=== PATIENT | male | born 1985 ===

== ENCOUNTER 2017-06-17 08:10 | Day surgery (SDC) | payer BC ==
[2017-06-12 10:15] VITALS: BMI 35.5
[2017-06-17] MEDS ORDERED: Bupivacaine 0.5% Inj(30mL) IJ ONE (08:33)
[2017-06-17] MEDS ORDERED: Lidocaine 1% Inj (20ml) IJ ONE (08:33)
[2017-06-17] MEDS ORDERED: ceFAZolin 1 GM in Sodium Chloride 0.9% 100 ML IVPB ONE (08:33)
[2017-06-17] MEDS ORDERED: Sodium Chloride 0.9% 1,000 ML IV SCH (08:45)
--- NOTE | 2017-06-17 08:47 | CP.PCM.PN ---
Subjective - Date & Time of Evaluation Date of Evaluation: 06/17/17 Time of Evaluation: 08:44 - Subjective Subjective: 31 year old male seen preoperatively in [facility] for left ankle arthroscopy and lateral ankle stabilization with Dr. Daniels today. Patient is AAO x 3 and NAD resting comfortably in bed at time of visit. States that he only has pain in ankle when walking or running. States that he has been NPO since 11:30 last night. Denies any past surgeries besides dental procedures. Denies any further pedal complaints at this time. Denies tobacco use, is a social drinker and denies illicit drug use. Denies any recent N/V/F/C/CP/SOB/D/Posterior calf pain when squeezed Objective - Medications Medications: Current Medications Cefazolin Sodium 1 gm/ Sodium (Chloride) 100 mls @ 100 mls/hr IVPB ONCE ONE PRN Reason: Protocol Stop: 06/17/17 09:32 Sodium Chloride (Sodium Chloride 0.9%) 1,000 mls @ 0 mls/hr IV .Q0M SALAZAR PRN Reason: As Directed Stop: 06/18/17 08:33 - Constitutional Appears: Well, Non-toxic, No Acute Distress - Extremities Exam Additional comments: LE focused exam: Vasc: DP/PT pulses palpable 2/4 b/l. Skin temperature warm to warm from proximal to distal. CFT < 3 seconds to all digits b/l. No edema noted b/l Neuro: Epicritic and protective sensation grossly intact b/l Derm: No open lesions, wounds, maceration, xerosis, abnormal pigmentation or abnormal growths noted b/l. Nails well manicured and normotrophic 1-10 b/l MSK: Minimal POP to left ankle joint with passive ROM. No POP to left ankle joint. No other gross deformities noted - Neurological Exam Neurological Exam: Alert, Awake, Oriented x3 - Psychiatric Exam Psychiatric exam: Normal Affect, Normal Mood Assessment and Plan - Assessment and Plan (Free Text) Assessment: 31 year old male seen preoperatively in [facility] for left ankle arthroscopy and lateral ankle stabilization with Dr. Daniels today Plan: Pt was seen and examined in [facility] Pt NPO status was confirmed All pre-op testing and clearance in chart Pt has exhausted all conservative treatment at this time and is opting for surgical intervention Pt was explained procedure and post-operative course All pt's questions were answered to satisfaction No guarantees were made Pt understands all risks, benefits and complications of procedure Pt will follow-up with Dr. Daniels within 1 week of surgery
--- NOTE | 2017-06-17 08:50 | CP.SDSHP ---
Same Day Surgery H & P - History Proposed Procedure: Left ankle arthroscopy and debridement with lateral ankle stabilization repair - Previous Medical/Surgical History Pain: 4.Moderate Pain - Allergies Allergies: Allergies cats Allergy (Uncoded 06/17/17 08:22) ITCHING sneezing - Current Medications Current Medications: Denies - Physical Exam General Appearance: Good Mental Status: Alert & Oriented x3 - {Optional Preform as Required} Integument: WNL Ortho: Other (Pain with ROM left ankle) - Impression Pt. Evaluated Today:Candidate for Anesthesia & Procedure: Yes - Date & Time Date: 06/17/17 Time: 08:50 Short Stay Discharge - Short Stay Discharge Admitting Diagnosis/Reason for Visit: M65.872,S93.492S,M25.272 Disposition: HOME/ ROUTINE Referrals: Mo Bass MD [Primary Care Provider] - Follow-up: Dr. Daniels Instructions: RICE Therapy (GEN)
[2017-06-17 08:51] VITALS: RESP 20
[2017-06-17] MEDS ORDERED: Bupivacaine 0.5% Inj(30mL) ONE (10:39)
[2017-06-17] MEDS ORDERED: Propofol 10 mg/ml Inj (20 ML) ONE ×2 (10:44→13:35)
[2017-06-17] MEDS ORDERED: Rocuronium 10 mg/ml (5 ml) ONE (10:45)
[2017-06-17] MEDS ORDERED: Midazolam 2 MG/2 ML VIAL ONE (10:45)
[2017-06-17] MEDS ORDERED: ePHEDrine 50 mg/ml Inj ONE (10:45)
[2017-06-17] MEDS ORDERED: Phenylephrine 10 mg/ml Inj ONE (10:45)
[2017-06-17] MEDS ORDERED: Succinylcholine 200 mg/10 ml Inj IV ONE (10:45)
[2017-06-17] MEDS ORDERED: Lactated Ringer's 1,000 ML IV ONE ×2 (11:15→14:00)
[2017-06-17] MEDS ORDERED: Lidocaine 1% Inj (20ml) ONE (11:41)
[2017-06-17] MEDS ORDERED: Lidocaine 2% w Epi 1:100,000 Inj IJ ONE (11:45)
[2017-06-17] MEDS ORDERED: Desflurane Inhalation Anesthetic Liq (240 ml) ONE (12:13)
[2017-06-17] MEDS ORDERED: Ropivacaine 0.5% 30ML IV ONE (13:03)
[2017-06-17] MEDS ORDERED: Oxycodone/Acetaminophen 5/325 mg Tab PO PRN ×2 (13:20)
--- NOTE | 2017-06-17 13:20 | PCM.SURG1 ---
Surgeon's Initial Post Op Note - Surgeon's Notes Surgeon: Dr. Daniels Head Girls Golf Coach: Dr. Platt PGY-3, Dr. Izquierdo PGY-2 Type of Anesthesia: General LMA, Local Anesthesia Administered By: Dr. Salgado Pre-Operative Diagnosis: left ankle painful synovitis, lateral ligamentous instability/ rupture Operative Findings: see dictation Post-Operative Diagnosis: same Operation Performed: left ankle arthroscopy, left ankle lateral stabilization Specimen/Specimens Removed: soft tissue Estimated Blood Loss: EBL {In ML}: 2 Blood Products Given: N/A Drains Used: No Drains Post-Op Condition: Good Date of Surgery/Procedure: 06/17/17 Time of Surgery/Procedure: 11:00
--- NOTE | 2017-06-17 13:48 | PCM.ANESB2 ---
Popliteal Nerve Block - Popliteal Nerve Block Date of Procedure: 06/17/17 Procedure Performed: Popliteal Nerve Block Left - Procedure Popliteal Nerve Block: This procedure was explained to the patient that it is for post-operative pain management. Consent was obtained after a thorough discussion with the patient regarding the benefits and possible complications of local anesthetic block of the sciatic nerve at the popliteal level. The patient was brought to the operating room and standard monitors are applied. Time-out was held with the circulating nurse to confirm the appropriate block. Patient's operative leg was gently raised and supported and the groove in between the biceps femoris and vastus lateralis muscles was carefully palpated. The skin approximately 8cm above the popliteal crease was then marked. The ultrasound transducer was then applied to the posterior thigh approximately 8cm above the popliteal crease in the transverse plane and the sciatic nerve before its division was visualized lateral to the popliteal artery and in between the bicep femoris and semimembranosus/semitendinosus muscles. After identification, the lateral portion of the thigh was prepped with chloroprep. At this point, a # 21 gauge Stimuplex insulated 4 inch needle was inserted into pre-marked area and advanced in a perpendicular direction. The needle was inserted above the ultrasound transducer in-plane towards the sciatic nerve in a [id number] direction. Needle advancement was performed carefully under direct ultrasound visualization. Nerve stimulator was used and dorsiflexion of the __left___ foot was elicited at a current of __0.3___ MA. After repeated negative aspiration, __5__cc of ___ropivacaine 0.5%__ % was injected and this was flowed with ___15___ cc of __ropivacaine 0.5____% ____. Under ultrasound guidance the local anesthetics were observed surrounding sciatic nerve . The needle was removed intact and sterile dressing was applied. The patient tolerated the popliteal nerve block well with stable vital signs and no signs of LAST.
[2017-06-17 15:23] VITALS: PULSE 83
[2017-06-17 16:48] VITALS: BP 123/74; TEMP 98.2; O2SAT 100
--- NOTE | 2017-06-18 11:35 | PCM.OP ---
Operative Report - Operative Report Date of Surgery/Procedure: 06/17/17 Time of Surgery/Procedure: 12:00 Surgeon: Dr. Daniels DPM Drum Loader And Unloader: Kelechi Platt PGY-3, Nhi Izquierdo PGY-2 Anesthesia/Sedation: Dr. Salgado Pre-Operative Diagnosis: #1. Left ankle hyper trophic synovitis/fibrosis#2. Osteochondral abnormality left ankle#3. 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 Post-Operative Diagnosis: #1. Left ankle hyper trophic synovitis/fibrosis#2. Osteochondral abnormality left ankle#3. 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 Indication for Surgery: The patient is a 31 year-old M with the above diagnoses. The patient has exhausted conservative treatment at this time and now requests surgical intervention. The patient signed the consent after careful explanation of risks, benefits, complication and alternatives for surgical procedure. No guarantees were given nor implied. 2 grams Ancef IV were given to the pt hour prior to the procedure. NPO status was confirmed prior to taking pt to the OR. Operative Findings: Preparation: The patient was brought to the operating room and placed on the operating room table in supine position. A well-padded pneumatic Thigh tourniquet was placed to the patient's Left Thigh. Once general anesthesia was achieved, the left lower extremity was then prepped and draped in usual sterile manner. Esmarch was utilized to exsanguinate the patient's Left lower extremity. Pneumatic Thigh tourniquet was then inflated to 350 mmHg and procedure began. Procedure/Operation Description: #1. Arthroscopic debridement of left ankleAttention was then directed to the dorsal aspect of the patients left ankle, where the ankle was infiltrated with approximately mixture of 20ml of 1% Lidocaine plain and 10ml of 1% Lidocaine with epinephrine. Next, utilizing a surgical marking pen, anatomical landmarks were marked such as the tibial anterior tendon and the medial and lateral gutters were identified. Next, Utilizing a #11 blade, a medial portal was created with a hemostat down to the level of the ankle joint. The ankle joint was then entered. Next, a 2.7 scope was entered into the medial portal. There was an abundance of hypertrophic synovium as well as fibrous bands within the ankle joint. A lateral portal was then created utilizing a #11 blade and a hemostat down to the level of the ankle joint. The trocar was placed into the lateral portal and triangulated along with the 2.7scope. At this time, a 3.5mm aggressive shaver was inserted into the lateral portal and debridement of the hypertrophic synovium and fibrous bands began. The ankle joints were inspected for any osteochondral defects. There was suspicious part on postero-lateral aspect of the talus dome however it was not osteochondral defect. Once the debridement was completed, the scope and the shaver were removed from each portal. The skin was reapproximated and copated with #4-0 Monocryl. #2. Lateral ankle stabilization with Arthrex interarnal brace and suture keo. Attention was directed to the lateral aspect of the left ankle joint overlying where the anterior talofibular ligament is located. A curvilinear incision was created overlying the ATFL location at the level of the lateral gutter of the ankle joint. The incision was carried through subcutaneous tissues with care being taken to identify all vital neurovascular structures; all bleeders were cauterized and ligated as necessary. Utilizing a #15 blade, the capsular structures were incised in a vertical fashion overlying the roof of the sinus tarsi. Once the capsular structures were incised, it was noted that the ATFL was completely ruptured at the distal portion where it inserts onto the talus with very few fibers intact. At this time, the ankle joint was inverted and the articular cartilage and lateral gutter were inspected for any osteochondral lesions and none were noted. The ankle joint was completely irrigated. Next, the 3.4mm drill hole was created on the non-articulating surface of the talus directed approximately 45 degrees prevent to violating the ankle joint. Then a 4.75mm Swivelock tap was utilized. The fiber tape from the Internal Brace was fed through the eyelet of the 4.75mm Swivelock and the anchor was inserted into the talar tunnel with a mallet to assist with proper placement and fit into the talus. To avoid over- tensioning, the hemostat was placed in between the fiber tape. The surgical site was irrigated with copious amount of normal sterile saline. Next, a 2.4 mm drill bit from [employer] was utilized to create 1 drill hole in the lateral aspect of the talus body and one Arthrex 3.0 suture keo was placed in the drill hole. The sutures were then fed through the ATFL and Capsular tissues in an over and over suture fashion. While performing this, the foot was placed in everted and slightly dorsiflexion position. Next, the 2.7mm drill bit from the Internal Brace kit was utilized to create a drill hole 1.5cm proximal to the distal tip of the fibula. The drill hole was then tapped with a 3.5mm tap for at least two turns to securely fit into the fibula. Afterwards, the 3.5mm Swivelock which was loaded with the fibertape was placed into the drill hole. At this time, To avoid over-tensioning, the hemostat was placed in between the fiber tape. Excess fibertape was cut and removed from the operative field. The fiber tape was then set aside on the operative field to perform the modified brostom technique. The ankle was stressed in eversion and inversion with excellent stability noted. The surgical site was irrigated with copious amount of normal sterile saline. Deep tissue was reapproximated with #2-0 and #-3-0 vicryl and subcutanues was reapproximatedw tih #4-0 vicryl. Skin was respproximatedw tih #4-0 Monocry as in a running suture technique. #3. Platelet gamal plasma graft application to the left ankle Approximately 60cc of the patients own blood was harvested from the Hep-Lock. The 60cc of autologous blood was placed in the Centrifuge system which was added with an anticoagulant and centrifuged down to yield approximately 5cc of platelet rich plasma. The platelet rich plasma solution was then placed in a syringe.This platelet rich plasma autologous graft was implanted into the patients Left lateral ankle within the surgical site. Steri-strips were now applied to the incision. All surgical sites were then infiltrated with a total of 10cc of 0.5% Marcaine plain. All sites were now dressed with moist 4x4 gauze, dry 4x4 gauze, karlee and MEET. Estimated Blood Loss: 5 Complications: None Discharge & Condition: Postoperative Condition: The patient tolerated the anesthesia and procedure well and was escorted to the recovery room with vital signs stable and neurovascular status intact to the left ankle. This patient will follow up with
== END 2017-06-17 17:20 | disposition home or self-care (01) ==
LOC: H.OPSURG 08:10
PROVIDERS: ATTEND Podiatrist
DX: M65.872 Other synovitis and tenosynovitis, left ankle and foot (principal); M25.272 Flail joint, left ankle and foot; E66.9 Obesity, unspecified; L40.9 Psoriasis, unspecified; Z68.35 Body mass index [BMI] 35.0-35.9, adult; M25.372 Other instability, left ankle
CPT/HCPCS: 29897; 29898; 97161; C1713; C1769; G8978; G8979; G8980; J0330; J0690; J2001; J2250; J2370; J2405; J2704; J3010; J7030; J7120